=== PATIENT | female | born 1960 | race Caucasian/White ===

== ENCOUNTER 2017-02-09 10:33 | Emergency (ER) | payer BC ==
[2017-02-09] MEDS ORDERED: ASPIRIN 81 MG TABLET, CHEWABLE PO ONE (10:52)
[2017-02-09] MEDS ORDERED: LIDOCAINE 5% (700 MG) TRANSDERMAL ADH..PATCH TP ONE (10:52)
[2017-02-09 11:08] LABS: ABSOLUTE EOSINOPHILS # (AUTO) 0.1 10^3/uL (0.0-0.6); ABSOLUTE LYMPHOCYTES (AUTO) 1.9 10^3/uL (0.5-4.7); ABSOLUTE MONOCYTES (AUTO) 0.4 10^3/uL (0.1-1.4); ABSOLUTE NEUT (AUTO) 3.9 10^3/uL (1.7-8.2); BASOPHILS % (AUTO) 0.5 % (0-2); EOSINOPHILS % (AUTO) 2.1 % (0-6); HEMATOCRIT 40.4 % (36.0-47.0); HEMOGLOBIN 13.6 g/dL (12.0-15.5); HGB HCT DIFFERENCE 0.4; LYMPHOCYTES % (AUTO) 29.4 % (13-45); MEAN CORPUSCULAR HEMOGLOBIN 29.3 pg (27.0-33.4); MEAN CORPUSCULAR HGB CONC 33.6 g/dL (32.0-36.0); MEAN CORPUSCULAR VOLUME 87 fl (80-97); MONOCYTES % (AUTO) 6.7 % (3-13); RED BLOOD COUNT 4.63 10^6/uL (3.72-5.28); RED CELL DISTRIBUTION WIDTH 12.9 % (11.5-14.0); SEGMENTED NEUTROPHILS % (AUTO) 61.3 % (42-78); WHITE BLOOD COUNT 6.3 10^3/uL (4.0-10.5)
[2017-02-09 11:31] LABS: ALANINE AMINOTRANSFERASE 46 U/L (9-52); ALBUMIN 4.6 g/dL (3.5-5.0); ALKALINE PHOSPHATASE 70 U/L (38-126); ANION GAP 11 (5-19); ASPARTATE AMINO TRANSFERASE 33 U/L (14-36); BILIRUBIN,DIRECT 0.4 mg/dL (0.0-0.4); BILIRUBIN,TOTAL 0.9 mg/dL (0.2-1.3); BLOOD UREA NITROGEN 12 mg/dL (7-20); CALCIUM 10.4 mg/dL (8.4-10.2); CARBON DIOXIDE 27 mmol/L (22-30); CHLORIDE 103 mmol/L (98-107); CREATINE KINASE 42 U/L (30-135); CREATININE RESULT 0.71 mg/dL (0.52-1.25); GLUCOSE 124 mg/dL (75-110); LIPASE 105.1 U/L (23-300); POTASSIUM 4.1 mmol/L (3.6-5.0); SODIUM 140.6 mmol/L (137-145); TOTAL PROTEIN 7.6 g/dL (6.3-8.2)
--- NOTE | 2017-02-09 11:44 | EKG REPORT ---
SEVERITY:- OTHERWISE NORMAL ECG - SINUS RHYTHM BORDERLINE LEFT AXIS DEVIATION : Confirmed by: Elise Rico 09-Feb-2017 11:44:01
[2017-02-09 11:46] LABS: CREATINE KINASE MB < 0.22 ng/mL (<4.55); TROPONIN I < 0.012 ng/mL
--- NOTE | 2017-02-09 12:14 | ER Document Report ---
ED General - General Chief Complaint: Arm Pain Stated Complaint: SHOULDER PAIN Time Seen by Provider: 02/09/17 10:52 - HPI Patient complains to provider of: left upper chest pain left shoulder pain left arm numbness and tingling Notes: Patient coming in for the above stated symptoms ongoing for approximately the last week to 3 weeks. Patient states she has not follow-up with her primary care physician. Patient states pain and symptoms are increased with movement. Patient denies any cardiac history. Patient denies smoking patient denies any recent travel out of state or out of the country. Patient denies a history of VA or PE. - Related Data Allergies/Adverse Reactions: Iodinated Contrast Media - Oral and Allergy (Verified 02/09/17 10:48) Past Medical History - Social History Smoking Status: Never Smoker Chew tobacco use (# tins/day): No Frequency of alcohol use: None Drug Abuse: None Family History: Reviewed & Not Pertinent - Past Medical History Cardiac Medical History: Reports: Hx Hypertension Renal/ Medical History: Denies: Hx Peritoneal Dialysis Psychiatric Medical History: Reports: Hx Depression Past Surgical History: Reports: Hx Orthopedic Surgery - Immunizations Hx Diphtheria, Pertussis, Tetanus Vaccination: Yes Review of Systems - Review of Systems Constitutional: No symptoms reported EENT: No symptoms reported Cardiovascular: Chest pain Respiratory: Cough Gastrointestinal: No symptoms reported Genitourinary: No symptoms reported Female Genitourinary: No symptoms reported Musculoskeletal: No symptoms reported Skin: No symptoms reported Hematologic/Lymphatic: No symptoms reported Neurological/Psychological: No symptoms reported Physical Exam - Vital signs Vitals: Temp Pulse Resp BP Pulse Ox 98.7 F 73 18 168/101 H 98 02/09/17 10:34 02/09/17 10:34 02/09/17 10:34 02/09/17 10:34 02/09/17 10:34 Interpretation: Normal - General General appearance: Appears well, Alert - HEENT Head: Normocephalic, Atraumatic Eyes: Normal Pupils: PERRL - Respiratory Respiratory status: No respiratory distress Chest status: Tender - Chest wall tenderness reproducible to palpation Breath sounds: Normal Chest palpation: Normal - Cardiovascular Rhythm: Regular Heart sounds: Normal auscultation Murmur: No - Abdominal Inspection: Normal Distension: No distension Bowel sounds: Normal Tenderness: Nontender Organomegaly: No organomegaly - Back Back: Normal, Nontender - Extremities General upper extremity: Normal inspection, Nontender, Normal color, Normal ROM , Normal temperature General lower extremity: Normal inspection, Nontender, Normal color, Normal ROM , Normal temperature, Normal weight bearing. No: Chip's sign - Neurological Neuro grossly intact: Yes Cognition: Normal Orientation: AAOx4 [place] Coma Scale Eye Opening: Spontaneous [place] Coma Scale Verbal: Oriented [place] Coma Scale Motor: Obeys Commands [place] Coma Scale Total: 15 Speech: Normal Motor strength normal: LUE, RUE, LLE, RLE Sensory: Normal - Psychological Associated symptoms: Normal affect, Normal mood - Skin Skin Temperature: Warm Skin Moisture: Dry Skin Color: Normal Course - Re-evaluation Re-evalutation: 02/09/17 12:56 Cardiac studies EKG chest x-ray does not show any critical etiology. More likely patient has chest wall pain that is reproducible. 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 More likely this is the reason why patient is having her left arm pain. Patient will be given Ultram and Motrin for pain control home. Patient was also encouraged to use ice and Tylenol. Patient will also continue Lidoderm cane cream or patches over-the- counter. Patient was told follow-up with her primary care physician. Patient was grateful for care stated understanding of the results and will be discharged home - Vital Signs Vital signs: Temp Pulse Resp BP Pulse Ox 98.6 F 72 16 157/87 H 98 02/09/17 12:37 02/09/17 12:37 02/09/17 12:37 02/09/17 12:37 02/09/17 12:37 - Laboratory Result Diagrams: 02/09/17 10:58 02/09/17 10:58 Laboratory results interpreted by me: 02/09/17 10:58 Glucose 124 H Calcium 10.4 H Discharge - Discharge Clinical Impression: Chest wall pain, Radicular pain in left arm Condition: Good Disposition: HOME, SELF-CARE Instructions: Radiculopathy ([facility]), Chest Wall Pain ([facility]), Family Physicians / Practices Additional Instructions: Your laboratory results data show any signs of infection cardiac damage. Your x -ray of the chest does not show any critical etiology. The x-ray of her neck does shows significant arthritis may be causing the numbness and tingling in her left arm and left hand. I would highly recommend following up with local provider for your continued chest wall pain also he may follow-up with the orthopedic doctor provided. Continue to take Tylenol and Motrin for your pain control. He may take the pain medication prescribed please be aware that this is a narcotic. Prescriptions: Ibuprofen [Motrin 600 Mg Tablet] 600 mg PO TID #30 tablet Tramadol HCl [Ultram 50 mg Tablet] 50 mg PO ASDIR PRN #10 tablet PRN Reason: Referrals: CARMENCITA LERNER MD [ACTIVE STAFF] - Follow up as needed CAROLINA FERGUSON MD [ACTIVE STAFF] - Follow up as needed
[2017-02-09 12:42] VITALS: BP 157/87
== END 2017-02-09 12:38 | disposition home or self-care (01) ==
LOC: ER 10:33
DX: M47.22 Other spondylosis with radiculopathy, cervical region (principal); R07.89 Other chest pain; M25.512 Pain in left shoulder; R20.0 Anesthesia of skin; R20.2 Paresthesia of skin; R05 Cough; I10 Essential (primary) hypertension; Z91.041 Radiographic dye allergy status
CPT/HCPCS: 36415; 71020; 72040; 80053; 82550; 82553; 83690; 84484; 85025; 93005; 93010; 99284